=== PATIENT | male | born 1940 | race Caucasian/White ===

== ENCOUNTER → 2018-05-28 15:59 | Outpatient (CLI) | payer MEDICARE ==
[2018-05-28 16:46] LABS: PROTIME 47.9 SECONDS (11.6-15.0)
[2018-05-28 17:39] LABS: INR 5.35 (0.85-1.17)
== END | disposition home or self-care (01) ==
LOC: D.LABREF 15:59
DX: I48.91 Unspecified atrial fibrillation (principal)

== ENCOUNTER → 2018-05-30 13:32 | Outpatient (CLI) | payer MEDICARE ==
[2018-05-30 14:00] LABS: INR 3.74 (0.85-1.17); PROTIME 36.2 SECONDS (11.6-15.0)
== END | disposition home or self-care (01) ==
LOC: D.LABREF 13:32
PROVIDERS: Internal Medicine
DX: I48.91 Unspecified atrial fibrillation (principal)

== ENCOUNTER → 2018-06-04 11:21 | Outpatient (CLI) | payer MEDICARE ==
[2018-06-04 15:15] LABS: INR 3.03 (0.85-1.17); PROTIME 30.6 SECONDS (11.6-15.0)
== END | disposition home or self-care (01) ==
LOC: D.LABREF 11:21
PROVIDERS: Internal Medicine
DX: I48.2 Chronic atrial fibrillation (principal)

== ENCOUNTER → 2018-06-11 10:39 | Outpatient (CLI) | payer MEDICARE ==
[2018-06-11 11:53] LABS: INR 3.55 (0.85-1.17); PROTIME 34.7 SECONDS (11.6-15.0)
== END | disposition home or self-care (01) ==
LOC: D.LABREF 10:39
PROVIDERS: Internal Medicine
DX: I48.2 Chronic atrial fibrillation (principal)

== ENCOUNTER → 2018-06-25 11:02 | Outpatient (CLI) | payer MEDICARE ==
[2018-06-25 11:21] LABS: INR 2.88 (0.85-1.17); PROTIME 29.4 SECONDS (11.6-15.0)
== END | disposition home or self-care (01) ==
LOC: D.LABREF 11:02
PROVIDERS: Internal Medicine
DX: I48.2 Chronic atrial fibrillation (principal)

== ENCOUNTER → 2018-07-09 12:04 | Outpatient (CLI) | payer MEDICARE ==
[2018-07-09 12:58] LABS: INR 2.14 (0.85-1.17); PROTIME 23.3 SECONDS (11.6-15.0)
== END | disposition home or self-care (01) ==
LOC: D.LABREF 12:04
PROVIDERS: Internal Medicine
DX: I48.2 Chronic atrial fibrillation (principal)